=== PATIENT | female | born 1965 | race Caucasian/White ===

== ENCOUNTER 2024-12-31 11:16 | Emergency (ER) | payer OTHER, SELFPAY ==
[2024-12-31] VITALS (22 sets, daily range): BP systolic 137–197; BP diastolic 92–120; PULSE 70–81; TEMP 36.9; O2SAT 93–99; BMI 29.1
--- NOTE | 2024-12-31 11:51 | US_ITS ---
The [address] [address] Patient Name: MARANDA PORTILLO MRN: [id number] date: 1965 Sex: F Assigned Patient Location: ER Current Patient Location: ER Accession/Order Number: [id number] Exam Date: 12/31/2024 11:52 Report Date: 12/31/2024 13:03 At the request of: VIKI COUCH Procedure: US right upper quadrant EXAM: US right upper quadrant HISTORY: ruq pain COMPARISON: None. TECHNIQUE: Grayscale, color and Doppler FINDINGS: The liver is normal in size, contour and echotexture measuring 16.2 cm in length. No focal hepatic mass. Hepatopedal flow in the main portal vein. The gallbladder is prominent in size. The wall measures 2.3 mm, normal. Negative sonographic Velázquez sign. Echogenic focus measuring up to 1.4 cm with acoustic shadowing, cholelithiasis. Gallbladder sludge. The common bile duct measures 8.5 mm, dilated. The visualized pancreas is normal The right kidney measures 9.1 x 4.5 x 5.0 cm. No hydronephrosis or solid mass US/US right upper quadrant IMPRESSION: Cholelithiasis and gallbladder sludge without evidence of acute cholecystitis Dilated common bile duct with no obstruction observed Electronically authenticated by: SOPHIE CUNNINGHAM Date: 12/31/2024 13:03
--- NOTE | 2024-12-31 11:51 | ED.GENADUL1 ---
HPI HPI - General Adult General Chief complaint: Abdominal Pain Stated complaint: ABDOMINAL PAIN Time Seen by Provider: 12/31/24 11:48 Source: patient Mode of arrival: walk-in Limitations: no limitations History of Present Illness HPI narrative: Patient states she has been experiencing right-sided abdominal pain for the last couple days. Pain is worse after she eats and goes across the abdomen. She is constipated. She has been on semaglutide and has been weaning herself off. Her last dose was a week ago. She has had 1 and hysterectomy in the past. She denies any other abdominal surgery. Related Data Previous Rx's ?Medication ?Instructions ?Recorded ketorolac 10 mg tablet 10 mg PO TID PRN pain 1 day #15 12/31/24 tabs ondansetron 4 mg disintegrating 4 mg PO Q6H PRN nausea and 12/31/24 tablet vomiting #10 tabs Allergies Allergy/AdvReac Type Severity Reaction Status Date / Time No Known Drug Allergies Allergy Verified 12/31/24 11:32 Opioid HPI Opioid Management Most Recent Opioid Data: Last Pain Scale 9 12/31/24 14:12 12/31/24 Last ED Pain Assessment 12/31/24 14:03 Last MAR Pain Assessment 12/31/24 14:12 Review of Systems ROS Status of ROS 10 or more systems reviewed and unremarkable except as noted in history and below [facility] Social History Little interest or pleasure in doing things: not at all Feeling down, depressed, or hopeless: not at all Exam Narrative Exam Narrative: Patient appears in mild discomfort due to pain. Vitals are stable and her initial blood pressure is elevated. HEENT exam is normal to inspection and there is no icterus or pallor. Neck is supple. Lung sounds are clear to auscultation bilaterally. Heart has regular rate and rhythm. S1 and S2 are normal. Abdomen is soft with tenderness in the right upper quadrant. No masses are felt and there is no CVA tenderness. Bowel sounds are normoactive and there is no organomegaly. Constitutional Vital Signs, click to edit/add: Last Vital Signs Temp 98.5 F 12/31/24 11:33 Pulse 74 12/31/24 14:02 Resp 20 12/31/24 14:02 BP 137/92 H 12/31/24 15:00 Pulse Ox 97 12/31/24 15:15 O2 Del Method Room Air 12/31/24 11:33 Course Vital Signs Vital signs: Vital Signs Temperature 98.5 F 12/31/24 11:33 Pulse Rate 81 12/31/24 11:33 Respiratory Rate 20 12/31/24 11:33 Blood Pressure 193/120 H 12/31/24 11:33 Pulse Oximetry 98 12/31/24 11:33 Oxygen Delivery Method Room Air 12/31/24 11:33 Temperature 98.5 F 12/31/24 11:33 Pulse Rate 74 12/31/24 14:02 Respiratory Rate 20 12/31/24 14:02 Blood Pressure 137/92 H 12/31/24 15:00 Pulse Oximetry 97 12/31/24 15:15 Oxygen Delivery Method Room Air 12/31/24 11:33 Medical Decision Making MDM Narrative Medical decision making narrative: Patient presents with pain in the right upper quadrant that is worse after food. CT scan of the abdomen pelvis revealed mild gallbladder hydrops with no inflammatory changes and no obstructive uropathy. Gallbladder ultrasound reported cholelithiasis and gallbladder sludge without evidence of acute cholecystitis. The common bile duct is dilated with no obstruction observed. Patient is placed on Toradol and Zofran to help with pain and nausea. She is advised to fat-free diet and is referred to outpatient surgery follow-up. She is to return anytime for worsening symptoms. Lab Data Labs: Lab Results 12/31/24 12/31/24 Range/Units 11:30 11:45 WBC 10.1 (4.0-11.0) 10^3/uL RBC 4.54 (4.20-5.40) 10^6/uL Hgb 13.5 (12.0-16.0) g/dL Hct 40.3 (36.0-48.0) % MCV 88.8 (81.0-99.0) fL MCH 29.7 (26.7-34.0) pg MCHC 33.5 (29.9-35.2) g/dL RDW 12.8 (11.0-15.0) % Plt Count 226 (150-450) 10^3/uL MPV 11.7 (9.5-13.5) fL Neut % (Auto) 45.6 (43.0-75.0) % Lymph % (Auto) 38.8 (20.5-60.0) % [place] % (Auto) 5.0 (1.7-12.0) % Eos % (Auto) 9.6 H (0.9-7.0) % Baso % (Auto) 0.7 (0.2-2.0) % Neut # (Auto) 4.6 (1.4-6.5) 10^3/uL Lymph # (Auto) 3.9 H (1.2-3.8) 10^3/uL [place] # (Auto) 0.5 (0.3-0.8) 10^3/uL Eos # (Auto) 1.0 H (0.0-0.7) 10^3/uL Baso # (Auto) 0.1 (0.0-0.1) 10^3/uL Abs Immat Gran (auto) 0.03 (0.00-0.03) 10^3/uL Imm/Tot Granulo (auto) 0.3 (0.0-0.5) % Lactate 0.8 (0.4-2.0) mmol/L Total Bilirubin 0.5 (0.2-1.0) mg/dL Direct Bilirubin <0.1 (0.0-0.2) mg/dL AST 23 (15-37) U/L ALT 14 (14-59) U/L Alkaline Phosphatase 87 (46-116) U/L Total Protein 8.2 (6.4-8.2) g/dL Albumin 3.7 (3.4-5.0) g/dL Globulin 4.5 g/dL Albumin/Globulin Ratio 0.8 Lipase 23.0 (16.0-77.0) U/L Urine Color Lt. yellow (YELLOW) Urine Clarity Clear (CLEAR) Urine pH 6.0 (5.0-9.0) Ur Specific [place] <=1.005 A (1.005-1.025) Urine Protein Negative (NEG/TRACE) mg/dL Urine Glucose (UA) Negative (NEGATIVE) mg/dL Urine Ketones Negative (NEGATIVE) mg/dL Urine Occult Blood Negative (NEGATIVE) Urine Nitrite Negative (NEGATIVE) Urine Bilirubin Negative (NEGATIVE) Urine Urobilinogen 0.2 (0.2-1.0) EU/dL Ur Leukocyte Esterase Negative (NEGATIVE) Urine RBC 0-2 (0-2) #/HPF Urine WBC 0-2 A (NONE SEEN) #/HPF Ur Squamous Epith Cells Rare (NONE/RARE) #/LPF Urine Crystals None seen (None Seen) #/HPF Urine Bacteria None seen (NONE SEEN) #/HPF Urine Casts None seen (NONE SEEN) #/LPF Urine Mucus None seen (NONE SEEN) Ur Culture Indicated? No Discharge Plan Discharge Chief Complaint: Abdominal Pain Clinical Impression: Biliary colic, Asymptomatic hypertension Cholelithiasis Qualifiers: Cholelithiasis location: gallbladder Cholecystitis presence: without cholecystitis Biliary obstruction: without biliary obstruction Qualified Code(s): K80.20 - Calculus of gallbladder without cholecystitis without obstruction Patient Disposition: Home, Self-Care Time of Disposition Decision: 15:15 Condition: Good Mode of Transportation: Private Vehicle Prescriptions / Home Meds: New ketorolac 10 mg tablet 10 mg PO TID PRN (Reason: pain) 1 Days Qty: 15 0RF ondansetron 4 mg tablet,disintegrating 4 mg PO Q6H PRN (Reason: nausea and vomiting) Qty: 10 0RF Print Language: [place] Instructions: Biliary Colic (ED), Gallstones (ED), Hypertension (ED) Additional Instructions: Fat free diet. Contact your PCP and surgeon of choice for further management. Return for worsening symptoms. Referrals: Nestor Canada [Primary Care Provider] - 1 week Discharge Date/Time: 12/31/24 15:42
--- NOTE | 2024-12-31 11:52 | CT_ITS ---
The [address] [address] Patient Name: MARANDA PORTILLO MRN: [id number] date: 1965 Sex: F Assigned Patient Location: ER Current Patient Location: ER Accession/Order Number: [id number] Exam Date: 12/31/2024 12:24 Report Date: 12/31/2024 13:00 At the request of: VIKI COUCH Procedure: CT abdomen pelvis wo con EXAMINATION: CT abdomen pelvis wo con HISTORY: right sided abd pain COMPARISON: No relevant comparison available. TECHNIQUE: Axial, Coronal, and Sagittal images were created without IV contrast. Dose reduction techniques were achieved by using automated exposure control and/or adjustment of mA and/or kV according to patient size and/or use of iterative reconstruction technique. FINDINGS: LUNG BASES: No visible pulmonary or pleural disease. LIVER: No enlargement, atrophy, abnormal density, or significant focal lesion. BILIARY: Mild gallbladder hydrops with no inflammatory changes PANCREAS: No lesion, fluid collection, ductal dilatation, or atrophy. SPLEEN: No enlargement or focal lesion. ADRENALS: No mass or enlargement. KIDNEYS: No mass, obstruction, or calcification. BOWEL/MESENTERY: No visible mass, obstruction, or bowel wall thickening. Normal appendix AORTA/VASCULAR: Heavy calcific atherosclerosis with no aortic aneurysm RETROPERITONEUM: No mass or adenopathy. LYMPH NODES: No adenopathy. URINARY BLADDER: No visible focal wall thickening, lesion, or calculus. PELVIC ORGANS: Hysterectomy ABDOMINAL WALL: No mass or hernia. BONES: No bony lesion or fracture. OTHER: Negative. CT/CT abdomen pelvis wo con IMPRESSION: Mild gallbladder hydrops with no inflammatory changes. No obstructive uropathy Electronically authenticated by: SOPHIE CUNNINGHAM Date: 12/31/2024 13:00
[2024-12-31 12:10] LABS: Basophils Absolute Auto 0.1 10^3/uL (0.0-0.1); Basophils Percent Auto 0.7 % (0.2-2.0); Eosinophils Percent Auto 9.6 % (0.9-7.0); Hematocrit 40.3 % (36.0-48.0); Hemoglobin 13.5 g/dL (12.0-16.0); Immature Granulocytes Abs Auto 0.03 10^3/uL (0.00-0.03); Immature Granulocytes Pct Auto 0.3 % (0.0-0.5); Lymphocytes Absolute Auto 3.9 10^3/uL (1.2-3.8); Lymphocytes Percent Auto 38.8 % (20.5-60.0); Mean Corpuscular HGB Conc 33.5 g/dL (29.9-35.2); Mean Corpuscular Hemoglobin 29.7 pg (26.7-34.0); Mean Corpuscular Volume 88.8 fL (81.0-99.0); Mean Platelet Volume 11.7 fL (9.5-13.5); Monocytes Absolute Auto 0.5 10^3/uL (0.3-0.8); Neutrophils Absolute Auto 4.6 10^3/uL (1.4-6.5); Neutrophils Percent Auto 45.6 % (43.0-75.0); Platelet Count 226 10^3/uL (150-450); Red Blood Count 4.54 10^6/uL (4.20-5.40); Red Cell Distribution Width 12.8 % (11.0-15.0); White Blood Count 10.1 10^3/uL (4.0-11.0)
[2024-12-31 12:12] LABS: Bilirubin Urine NEGATIVE (NEGATIVE); Blood Urine NEGATIVE (NEGATIVE); Clarity Urine CLEAR (CLEAR); Color Urine LT. YELLOW (YELLOW); Glucose Urine UA NEGATIVE (NEGATIVE); Ketones Urine NEGATIVE (NEGATIVE); Leukocyte Esterase Urine NEGATIVE (NEGATIVE); Nitrite Urine NEGATIVE (NEGATIVE); Protein Urine NEGATIVE (NEG/TRACE); Specific Gravity Urine <=1.005 (1.005-1.025); Urobilinogen Urine 0.2 EU/dL (0.2-1.0)
[2024-12-31] MEDS: ONDANSETRON PF 4 MG/2 ML VIAL IV (12:18)
[2024-12-31] MEDS: 0.9 % SODIUM CHLORIDE 1,000 ML 100 ML IV (12:18)
[2024-12-31] MEDS: HYDROMORPHONE HCL 0.5 MG/0.5 ML SYRINGE IVP (12:18)
[2024-12-31 12:19] LABS: Bacteria Urine NONE SEEN #/HPF (NONE SEEN); Cast Seen? NONE SEEN #/LPF (NONE SEEN); Crystals Seen? None Seen #/HPF (None Seen); Mucus Urine NONE SEEN (NONE SEEN); RBC Urine 0-2 #/HPF (0-2); Squamous Epithelial Cell Urine RARE #/LPF (NONE/RARE); Urine Culture Indicated NO; WBC Urine 0-2 #/HPF (NONE SEEN)
[2024-12-31 12:32] LABS: Alanine Aminotransferase 14 U/L (14-59); Albumin Globulin Ratio 0.8; Albumin Level 3.7 g/dL (3.4-5.0); Alkaline Phosphatase 87 U/L (46-116); Aspartate Amino Transferase 23 U/L (15-37); Bilirubin Direct <0.1 mg/dL (0.0-0.2); Bilirubin Total 0.5 mg/dL (0.2-1.0); Globulin 4.5 g/dL; Total Protein 8.2 g/dL (6.4-8.2)
[2024-12-31 12:38] LABS: Lactate/Lactic Acid 0.8 mmol/L (0.4-2.0)
[2024-12-31] MEDS: KETOROLAC TROMETHAMINE 30 MG/ML VIAL 15 MG IVP (14:11)
[2024-12-31] MEDS: FENTANYL CITRATE/PF 100 MCG/2 ML VIAL 50 MCG IV (14:12)
== END 2024-12-31 15:42 | disposition home or self-care (01) ==
PROVIDERS: Emergency Provider Emergency Medicine; PCP Family Medicine
DX: K80.70 Calculus of gallbladder and bile duct without cholecystitis without obstruction (principal); I10 Essential (primary) hypertension; Z79.899 Other long term (current) drug therapy; Z90.710 Acquired absence of both cervix and uterus
CPT/HCPCS: 36415; 74176; 76705; 80076; 81001; 83605; 83690; 85025; 96374; 96375; 99285; J1171; J1885; J2405; J3010

== ENCOUNTER 2025-01-01 01:25 | Emergency (ER) | payer OTHER, SELFPAY ==
[2025-01-01] VITALS (10 sets, daily range): BP systolic 149–183; BP diastolic 88–131; PULSE 77; TEMP 36.9; O2SAT 93–98; BMI 29.1
--- NOTE | 2025-01-01 01:40 | ED_ITS ---
HPI - Abdominal Pain General Chief Complaint: Abdominal Pain Stated Complaint: ABDOMINAL PAIN Time Seen by Provider: 01/01/25 01:26 Source: patient Mode of arrival: walk-in Limitations: no limitations History of Present Illness HPI narrative: 59-year-old female presents for right upper quadrant abdominal pain. She was seen here less than 12 hours ago and had an ultrasound which showed cholelithiasis and gallbladder sludge without acute cholecystitis. She also had a CT of her abdomen. Labs were essentially negative and she was discharged home. She still has some pain and its moderate. No trauma or fever or vomiting. Related Data Previous Rx's ?Medication ?Instructions ?Recorded ketorolac 10 mg tablet 10 mg PO TID PRN pain 1 day #15 12/31/24 tabs ondansetron 4 mg disintegrating 4 mg PO Q6H PRN nausea and 12/31/24 tablet vomiting #10 tabs hydrocodone 5 mg-acetaminophen 325 1 tab PO Q6H PRN pain 5 days #20 01/01/25 mg tablet tabs Allergies Allergy/AdvReac Type Severity Reaction Status Date / Time No Known Drug Allergies Allergy Verified 01/01/25 01:30 Review of Systems ROS Narrative A ten point review of systems is negative except as noted above. PFSH PFSH Social History Little interest or pleasure in doing things: not at all Feeling down, depressed, or hopeless: not at all Exam Narrative Exam Narrative: Nurses note and vital signs reviewed and patient is not hypoxic. General: The patient appears in no apparent distress. Skin: Warm, dry, no pallor noted. There is no rash noted. Head: Normocephalic, atraumatic Eye: Normal conjunctiva, no drainage Ears, Nose, Mouth, and Throat: oral mucosa is moist. Nares patent. Cardiovascular: Regular Rate and Rhythm Respiratory: Patient is in no distress, no accessory muscle use, lungs are clear to auscultation, no wheezing, rales or rhonchi Back: non-tender GI: Mild tenderness in the right upper quadrant without mass Musculoskeletal: The patient has no evidence of calf tenderness, no pitting edema, symmetrical pulses noted bilaterally Neurological: A&O, normal speech Psychiatric: Cooperative Constitutional Vital Signs, click to edit/add: Last Vital Signs Temp 98.4 F 01/01/25 01:36 Pulse 77 01/01/25 01:36 Resp 18 01/01/25 01:36 BP 183/131 H 01/01/25 01:36 Pulse Ox 98 01/01/25 01:36 O2 Del Method Room Air 01/01/25 01:36 Course Vital Signs Vital signs: Vital Signs Temperature 98.4 F 01/01/25 01:36 Pulse Rate 77 01/01/25 01:36 Respiratory Rate 18 01/01/25 01:36 Blood Pressure 183/131 H 01/01/25 01:36 Pulse Oximetry 98 01/01/25 01:36 Oxygen Delivery Method Room Air 01/01/25 01:36 Temperature 98.4 F 01/01/25 01:36 Pulse Rate 77 01/01/25 01:36 Respiratory Rate 18 01/01/25 01:36 Blood Pressure 183/131 H 01/01/25 01:36 Pulse Oximetry 98 01/01/25 01:36 Oxygen Delivery Method Room Air 01/01/25 01:36 MDM - Abdominal Pain MDM Narrative Medical decision making narrative: Labs are nonspecific. Amylase and lipase are normal as are her LFTs. The patient's gallbladder ultrasound was reviewed from earlier today and she is gallstones but no acute cholecystitis. She is referred to general surgery and provided prescription for [place]. Treatment diagnosis and follow-up were discussed with the patient. Differential Diagnosis Differential diagnosis: Likely abdominal pain, constipation, gastroenteritis, pancreatitis and other (Biliary colic) Lab Data Attestation: I reviewed the patient's lab results. Labs: Lab Results 01/01/25 Range/Units 01:40 WBC 14.8 H (4.0-11.0) 10^3/uL RBC 4.95 (4.20-5.40) 10^6/uL Hgb 14.9 (12.0-16.0) g/dL Hct 44.2 (36.0-48.0) % MCV 89.3 (81.0-99.0) fL MCH 30.1 (26.7-34.0) pg MCHC 33.7 (29.9-35.2) g/dL RDW 12.7 (11.0-15.0) % Plt Count 294 (150-450) 10^3/uL MPV 10.7 (9.5-13.5) fL Neut % (Auto) 56.7 (43.0-75.0) % Lymph % (Auto) 27.4 (20.5-60.0) % [place] % (Auto) 6.1 (1.7-12.0) % Eos % (Auto) 9.1 H (0.9-7.0) % Baso % (Auto) 0.5 (0.2-2.0) % Neut # (Auto) 8.4 H (1.4-6.5) 10^3/uL Lymph # (Auto) 4.1 H (1.2-3.8) 10^3/uL [place] # (Auto) 0.9 H (0.3-0.8) 10^3/uL Eos # (Auto) 1.3 H (0.0-0.7) 10^3/uL Baso # (Auto) 0.1 (0.0-0.1) 10^3/uL Abs Immat Gran (auto) 0.03 (0.00-0.03) 10^3/uL Imm/Tot Granulo (auto) 0.2 (0.0-0.5) % Sodium 140 (136-145) mmol/L Potassium 3.4 L (3.5-5.1) mmol/L Chloride 101 (98-107) mmol/L Carbon Dioxide 28.8 (21.0-32.0) mmol/L Anion Gap 13.6 BUN 8.0 (7.0-18.0) mg/dL Creatinine 1.00 (0.55-1.02) mg/dL Est GFR ( Amer) >60 (>=60 mL/min/1.73m^2) Est GFR (Non-Af Amer) 57 L (>=60 mL/min/1.73m^2) BUN/Creatinine Ratio 8.0 Glucose 117 H (74-106) mg/dL Calcium 9.0 (8.5-10.1) mg/dL Total Bilirubin 0.5 (0.2-1.0) mg/dL Direct Bilirubin 0.1 (0.0-0.2) mg/dL AST 11 L (15-37) U/L ALT 13 L (14-59) U/L Alkaline Phosphatase 95 (46-116) U/L Total Protein 8.7 H (6.4-8.2) g/dL Albumin 3.9 (3.4-5.0) g/dL Globulin 4.8 g/dL Albumin/Globulin Ratio 0.8 Amylase 32 (25-115) U/L Lipase 24.0 (16.0-77.0) U/L Discharge Plan Discharge Chief Complaint: Abdominal Pain Clinical Impression: Biliary colic Cholelithiasis Qualifiers: Cholelithiasis location: gallbladder Cholecystitis presence: without cholecystitis Biliary obstruction: without biliary obstruction Qualified Code(s): K80.20 - Calculus of gallbladder without cholecystitis without obstruction Patient Disposition: Home, Self-Care Time of Disposition Decision: 02:47 Condition: Good Mode of Transportation: Private Vehicle Prescriptions / Home Meds: New hydrocodone-acetaminophen 5-325 mg tablet 1 tab PO Q6H PRN (Reason: pain) 5 Days Qty: 20 0RF No Action ketorolac 10 mg tablet 10 mg PO TID PRN (Reason: pain) 1 Days Qty: 15 0RF ondansetron 4 mg tablet,disintegrating 4 mg PO Q6H PRN (Reason: nausea and vomiting) Qty: 10 0RF Print Language: [place]ic Instructions: Biliary Colic (ED) Referrals: Rickie Tony MD [Physician] - 1 week Rickie Li MD [Physician] - 1 week Nestor [place] [Primary Care Provider] - 1 week
[2025-01-01] MEDS: 0.9 % SODIUM CHLORIDE 1,000 ML 1000 ML IV (01:49)
[2025-01-01] MEDS: ONDANSETRON PF 4 MG/2 ML VIAL IV (01:50)
[2025-01-01] MEDS: MORPHINE SULFATE 4 MG/ML VIAL IV (01:50)
[2025-01-01 01:59] LABS: Basophils Absolute Auto 0.1 10^3/uL (0.0-0.1); Basophils Percent Auto 0.5 % (0.2-2.0); Eosinophils Absolute Auto 1.3 10^3/uL (0.0-0.7); Eosinophils Percent Auto 9.1 % (0.9-7.0); Hematocrit 44.2 % (36.0-48.0); Hemoglobin 14.9 g/dL (12.0-16.0); Immature Granulocytes Abs Auto 0.03 10^3/uL (0.00-0.03); Immature Granulocytes Pct Auto 0.2 % (0.0-0.5); Lymphocytes Absolute Auto 4.1 10^3/uL (1.2-3.8); Lymphocytes Percent Auto 27.4 % (20.5-60.0); Mean Corpuscular HGB Conc 33.7 g/dL (29.9-35.2); Mean Corpuscular Hemoglobin 30.1 pg (26.7-34.0); Mean Corpuscular Volume 89.3 fL (81.0-99.0); Mean Platelet Volume 10.7 fL (9.5-13.5); Monocytes Absolute Auto 0.9 10^3/uL (0.3-0.8); Monocytes Percent Auto 6.1 % (1.7-12.0); Neutrophils Absolute Auto 8.4 10^3/uL (1.4-6.5); Neutrophils Percent Auto 56.7 % (43.0-75.0); Platelet Count 294 10^3/uL (150-450); Red Blood Count 4.95 10^6/uL (4.20-5.40); Red Cell Distribution Width 12.7 % (11.0-15.0); White Blood Count 14.8 10^3/uL (4.0-11.0)
[2025-01-01 02:18] LABS: Alanine Aminotransferase 13 U/L (14-59); Albumin Globulin Ratio 0.8; Albumin Level 3.9 g/dL (3.4-5.0); Alkaline Phosphatase 95 U/L (46-116); Amylase 32 U/L (25-115); Anion Gap 13.6; Aspartate Amino Transferase 11 U/L (15-37); Bilirubin Direct 0.1 mg/dL (0.0-0.2); Bilirubin Total 0.5 mg/dL (0.2-1.0); Carbon Dioxide 28.8 mmol/L (21.0-32.0); Chloride 101 mmol/L (98-107); Estimated GFR (African America >60 (>=60 mL/min/1.73m^2); Estimated GFR (Non-African Ame 57 (>=60 mL/min/1.73m^2); Globulin 4.8 g/dL; Glucose 117 mg/dL (74-106); Potassium 3.4 mmol/L (3.5-5.1); Sodium 140 mmol/L (136-145); Total Protein 8.7 g/dL (6.4-8.2)
== END 2025-01-01 03:01 | disposition home or self-care (01) ==
PROVIDERS: Emergency Provider Emergency Medicine; PCP Family Medicine
DX: K80.70 Calculus of gallbladder and bile duct without cholecystitis without obstruction (principal)
CPT/HCPCS: 36415; 80048; 80076; 82150; 83690; 85025; 96374; 96375; 99284; J2270; J2405